=== PATIENT | male | born 1970 | race Caucasian/White ===

== ENCOUNTER 2022-12-30 18:50 | Inpatient (IN) | payer SELFPAY ==
[2022-12-30] MEDS ORDERED: Heparin 10,000 UNITS/ 10 ML VIAL ONE ×2 (19:01→22:01)
[2022-12-30] MEDS ORDERED: Adenosine 6 MG/2 ML VIAL ONE (19:01)
[2022-12-30] MEDS ORDERED: Atropine Sulfate 1 mg/10 ml Syringe ONE (19:01)
[2022-12-30] MEDS ORDERED: Verapamil 5 MG/2 ML VIAL ONE (19:01)
[2022-12-30] MEDS ORDERED: Nitroglycerin 100MG/250ML BOT 0 ML ONE (19:01)
[2022-12-30] MEDS ORDERED: Lidocaine 1% (PF) 30 ML VIAL ONE (19:03)
[2022-12-30] MEDS ORDERED: Fentanyl 100 MCG/2 ML VIAL ONE (19:04)
[2022-12-30 19:10] LABS: #Eosinphils 0.1 thou/uL (0.0-0.7); #Lymphocytes 2.5 thou/uL (1.20-3.40); #Monocytes 0.5 thou/uL (0.11-0.59); #Neutrophils 9.1 thou/uL (1.40-6.50); %Basophils 0.3 % (0.0-1.0); %Eosinophils 0.7 % (0.0-10.0); %Lymphocytes 20.7 % (21.0-51.0); %Monocytes 4.2 % (0.0-10.0); %Neutrophils 74.1 % (42.0-75.0); Hemoglobin 16.8 g/dL (14.0-18.0); Mean Corpuscular HGB CONC 32.3 g/dL (32.0-36.0); Mean Corpuscular Hemoglobin 31.8 pg (27.0-31.0); Mean Corpuscular Volume 98.2 fl (78.0-98.0); Mean Platelet Volume 8.8 fL (7.4-10.4); Platelet Count 307 10x3/uL (130-400); RBC Distribution Width 13.9 % (11.5-14.5); Red Blood Cell (RBC) Count 5.28 mill/uL (4.70-6.10); White Blood Cell (WBC) Count 12.2 10x3/uL (4.8-10.8)
[2022-12-30 19:25] LABS: ALT (SGPT) 107 U/L (8-55); AST (SGOT) 49 U/L (5-34); Albumin 3.8 g/dL (3.5-5.0); Alkaline Phosphatase 109 U/L (40-110); Anion Gap 21 mmol/L (10-20); BUN (Urea Nitrogen) 18 mg/dL (8.4-25.7); Bilirubin, Total 1.9 mg/dL (0.2-1.2); Calc. Creatinine Clearance 0 mL/min (70-130); Calcium 9.3 mg/dL (7.8-10.44); Carbon Dioxide 14 mmol/L (22-29); Chloride 104 mmol/L (98-107); Estimated GFR 63; Glucose 175 mg/dL (70-105); Lipase 9 U/L (8-78); Potassium 3.9 mmol/L (3.5-5.1); Protein, Total 6.8 g/dL (6.0-8.3); Sodium 135 mmol/L (136-145)
[2022-12-30] MEDS ORDERED: Norepinephrine 4 MG/4 ML VIAL ONE (19:28)
[2022-12-30] MEDS ORDERED: Heparin 25,000 units/D5W 500 ML ONE ×3 (19:29→22:04)
[2022-12-30] MEDS ORDERED: Ondansetron PF 4 MG/2 ML Vial ONE (19:44)
[2022-12-30 19:46] LABS: CKMB 3.5 ng/mL (0-6.6)
[2022-12-30] MEDS ORDERED: Aggrastat 12.5 MG/250 ML 250 ML ONE (19:58)
[2022-12-30] MEDS ORDERED: Morphine 4 MG/ML VIAL ONE ×2 (19:58→23:58)
[2022-12-30] MEDS ORDERED: TICAGRELOR 90 MG TABLET ONE (20:58)
[2022-12-30] MEDS ORDERED: DOPamine 400 MG/D5W 250 ML 0 ML ONE (21:09)
[2022-12-30] MEDS ORDERED: Morphine 2 MG/ML VIAL SLOW IVP PRN (23:55)
[2022-12-31] MEDS ORDERED: Lorazepam 2 MG/ML VIAL SLOW IVP PRN ×3 (00:30→11:15)
[2022-12-31] MEDS ORDERED: Morphine 4 MG/ML VIAL SLOW IVP PRN (00:50)
[2022-12-31] MEDS ORDERED: Sodium Bicarbonate 150 MEQ in Dextrose 5% in Water 1,000 ML IV SCH (01:00)
[2022-12-31] MEDS ORDERED: Sodium Bicarb 50 MEQ/50 ML VIAL IVP SCH ×3 (01:00→11:45)
[2022-12-31 01:04] LABS: Base Excess (BEa) -16.8 mEq/L (-2.0 to +3.0); Hemoglobin (Hb) 17.5 g/dL (14.0-18.0); O2 Tension (PaO2), arterial 254.9 mmHg (80.0-100.0); pH, Arterial 7.24 (7.35-7.45)
[2022-12-31 01:05] LABS: Carboxyhemoglobin (COHb) 0.4 gm% (0.0-3.0)
[2022-12-31 01:06] LABS: ALV-art Gradient 435.225 mmHg (0-20); Puncture Site RRA
[2022-12-31 01:14] LABS: Troponin I 398.421 ng/mL (< 0.028)
[2022-12-31 01:37] LABS: CKMB 586.7 ng/mL (0-6.6)
[2022-12-31] MEDS ORDERED: Dextrose 5% in Water 1,000 ML IV PRN (01:48)
[2022-12-31] MEDS ORDERED: HumaLOG 300 UNITS/3 ML VIAL SC PRN ×3 (01:48→19:15)
[2022-12-31] MEDS ORDERED: Dextrose 50% Abboject 50 ML SYRINGE SLOW IVP PRN (01:48)
[2022-12-31] MEDS ORDERED: Electrolyte Replacement Protocol 1 EACH FS ONE (01:48)
[2022-12-31] MEDS ORDERED: Electrolyte Replacement Protocol FS PRN (02:00)
[2022-12-31] MEDS: DOBUTamine 500 mg/250 ml 250 ML IVPB SCH ×6 (02:39→21:48)
[2022-12-31] MEDS: NOREPINEPHRINE 8 MG/250 ML-D5W 250 ML IVPB SCH ×5 (04:26→23:19)
[2022-12-31] MEDS: Morphine 2 MG/ML VIAL SLOW IVP PRN ×2 (05:30→08:35)
[2022-12-31 05:46] VITALS: BMI 26.4
[2022-12-31 06:09] LABS: Acetaminophen Less than 10.0 mcg/mL (10.0-30.0); Alcohol 12 mg/dL (Less than 10); Salicylate 8.1 mg/dL (15.0-30.0)
[2022-12-31 06:35] LABS: Band 5 % (5-11); Hemoglobin 13.6 g/dL (14.0-18.0); Large Platelets SLIGHT; Lymphocytes 3 % (21-51); MDiff Complete? YES; Macrocytosis SLIGHT = 6-15 cells (100X) (0-5/hpf); Mean Corpuscular HGB CONC 31.4 g/dL (32.0-36.0); Mean Corpuscular Hemoglobin 31.6 pg (27.0-31.0); Mean Platelet Volume 9.3 fL (7.4-10.4); Monocytes 7 % (0-10); Neutrophil 85 % (42-75); Nucleated RBC 1 % (0); Platelet Count 202 10x3/uL (130-400); Platelet Morphology Comment Appears Adequate; Polychromasia SLIGHT = 2-3 cells (100X) (0-2/hpf); RBC Distribution Width 14.1 % (11.5-14.5); Red Blood Cell (RBC) Count 4.29 mill/uL (4.70-6.10); White Blood Cell (WBC) Count 24.3 10x3/uL (4.8-10.8)
[2022-12-31 07:30] LABS: Troponin I 556.849 ng/mL (< 0.028)
[2022-12-31 08:21] LABS: Base Excess -16.4 mEq/L (-2.0 to +3.0); Calcium, Ionized (venous) 1.02 mmol/L (1.16-1.32); Chloride (VBG) 100 mmol/L (98-106); Hemoglobin (Hb) 13.9 g/dL (13.1-17.2); Potassium (VBG) 4.88 mmol/L (3.70-5.30); Sodium 136.3 mmol/L (133-146)
[2022-12-31 08:49] LABS: ALT (SGPT) 3732 U/L (8-55)
[2022-12-31] MEDS ORDERED: Calcium Chloride 1 GM/10 ML Abboject SYRINGE ONE (08:56)
[2022-12-31] MEDS ORDERED: CALCIUM GLUC 1 GM/NS 50 ML 1 GM in Premix Bag 1 BAG IVPB SCH (09:15)
[2022-12-31] MEDS ORDERED: Sodium Bicarb 50 MEQ/50 ML VIAL ONE (09:21)
[2022-12-31] MEDS ORDERED: Sodium Bicarb 50 MEQ/50 ML Abboject 8.4% SYRINGE ONE (09:25)
[2022-12-31] MEDS ORDERED: Heparin 25,000 units/D5W 500 ML IV SCH ×4 (09:30→17:00)
[2022-12-31] MEDS: Aspirin Chewable 81 MG TAB PO SCH ×2 (09:40→10:31)
[2022-12-31] MEDS: TICAGRELOR 90 MG TABLET PO SCH ×3 (09:45→22:36)
[2022-12-31] MEDS ORDERED: Fentanyl 100 MCG/2 ML VIAL SLOW IVP SCH (09:45)
[2022-12-31] MEDS ORDERED: PROPOFOL 200 MG/20 ML VIAL ONE (09:55)
[2022-12-31 10:01] LABS: Albumin 2.5 g/dL (3.5-5.0)
[2022-12-31 10:02] LABS: Chloride 102 mmol/L (98-107); Potassium 4.6 mmol/L (3.5-5.1); Sodium 138 mmol/L (136-145)
[2022-12-31 10:03] LABS: Calcium 8.6 mg/dL (7.8-10.44); Glucose 164 mg/dL (70-105)
[2022-12-31 10:05] LABS: Anion Gap 30 mmol/L (10-20); Carbon Dioxide 11 mmol/L (22-29)
[2022-12-31 10:06] LABS: Alkaline Phosphatase 86 U/L (40-110)
[2022-12-31 10:07] LABS: BUN (Urea Nitrogen) 29 mg/dL (8.4-25.7)
[2022-12-31] MEDS ORDERED: Fentanyl CADD 100 ML ONE (10:07)
[2022-12-31] MEDS ORDERED: PROPOFOL 0 ML ONE (10:10)
[2022-12-31 10:13] LABS: SARS-CoV-2 NAA Rapid Test Not Detected (NotDetected)
[2022-12-31 10:13] LABS: Bilirubin, Total 4.9 mg/dL (0.2-1.2); Calc. Creatinine Clearance 75 mL/min (70-130); Estimated GFR 54
[2022-12-31 10:14] LABS: AST (SGOT) 2062 U/L (5-34)
[2022-12-31 10:15] LABS: Globulin 3.1 g/dL (2.4-3.5); Protein, Total 5.6 g/dL (6.0-8.3)
[2022-12-31] MEDS: Pantoprazole 40 MG VIAL IVP SCH (10:31)
[2022-12-31 10:47] LABS: Base Excess (BEa) -12.3 mEq/L (-2.0 to +3.0); CO2 Tension 29.2 mmHg (35.0-45.0); Calcium, Ionized (arterial) 1.07 mmol/L (1.12-1.30); Carboxyhemoglobin (COHb) 0.1 gm% (0.0-3.0); Hemoglobin (Hb) 12.8 g/dL (14.0-18.0); O2 Tension (PaO2), arterial 172.9 mmHg (80.0-100.0); Potassium - ABG Lab 4.39 mmol/L (3.70-5.30); pH, Arterial 7.27 (7.35-7.45)
[2022-12-31] MEDS ORDERED: Propofol 1,000 MG/100 ML VIAL IV ONE (10:49)
[2022-12-31] MEDS: Heparin 10,000 UNITS/ 10 ML VIAL SLOW IVP SCH ×5 (10:57→22:11)
[2022-12-31 11:00] LABS: Actual Bicarbonate (HCO3a) 13.1 mEq/L (22-28); Puncture Site Arterial Line
[2022-12-31] MEDS ORDERED: Vecuronium 10 MG VIAL IV SCH (11:00)
[2022-12-31] MEDS ORDERED: DISCONTINUE PREVIOUS NARCOTIC PAIN MEDICATIONS AND BENZODIAZEPINES FS SCH (11:15)
[2022-12-31] MEDS ORDERED: Lorazepam 2 MG/ML VIAL SLOW IVP SCH (11:15)
[2022-12-31] MEDS ORDERED: Propofol 1,000 MG/100 ML VIAL IV PRN (11:15)
[2022-12-31] MEDS ORDERED: Rocuronium Bromide 10 MG/ML (10ML VIAL) IVPB SCH (11:15)
[2022-12-31] MEDS ORDERED: Fentanyl BOLUS 250 ML IVPB PRN (11:15)
[2022-12-31] MEDS ORDERED: Ondansetron PF 4 MG/2 ML Vial IVP SCH (11:15)
[2022-12-31] MEDS ORDERED: Fentanyl CADD 100 ML IV SCH (11:15)
[2022-12-31] MEDS ORDERED: Morphine 2 MG/ML VIAL SLOW IVP PRN (11:15)
[2022-12-31] MEDS ORDERED: Propofol BOLUS 1,000 MG/100 ML VIAL IV PRN (11:15)
[2022-12-31] MEDS ORDERED: NOREPINEPHRINE 8 MG/250 ML-D5W 250 ML ONE (12:23)
[2022-12-31] MEDS: EPINEPHrine 4 MG in Dextrose 5% in Water 250 ML IV SCH ×4 (14:21→23:04)
[2022-12-31 15:25] LABS: Chloride 100 mmol/L (98-107); Sodium 137 mmol/L (136-145)
[2022-12-31 15:26] LABS: Glucose 299 mg/dL (70-105)
[2022-12-31 15:28] LABS: Anion Gap 27 mmol/L (10-20); Carbon Dioxide 14 mmol/L (22-29)
[2022-12-31 15:29] LABS: Calc. Creatinine Clearance 37 mL/min (70-130); Estimated GFR 23
[2022-12-31 15:30] LABS: BUN (Urea Nitrogen) 33 mg/dL (8.4-25.7)
[2022-12-31] MEDS: Sodium Bicarbonate 150 MEQ in Dextrose 5% in Water 1,000 ML IV SCH (15:36)
[2022-12-31 15:37] LABS: Calcium 7.3 mg/dL (7.8-10.44)
[2022-12-31] MEDS ORDERED: Rosuvastatin 20 MG TAB PO SCH (21:00)
[2022-12-31 21:23] LABS: Actual Bicarbonate (HCO3a) 23.4 mEq/L (22-28); Base Excess (BEa) -0.9 mEq/L (-2.0 to +3.0); CO2 Tension 37.6 mmHg (35.0-45.0); Calcium, Ionized (arterial) 0.87 mmol/L (1.12-1.30); Carboxyhemoglobin (COHb) 0.1 gm% (0.0-3.0); O2 Tension (PaO2), arterial 203.2 mmHg (80.0-100.0); Potassium - ABG Lab 3.36 mmol/L (3.70-5.30); pH, Arterial 7.41 (7.35-7.45)
[2022-12-31 21:24] LABS: Puncture Site Arterial Line
[2022-12-31 21:49] LABS: Lactic Acid 3.6 mmol/L (0.5-2.2)
[2022-12-31 21:54] LABS: Albumin 2.5 g/dL (3.5-5.0); Alkaline Phosphatase 94 U/L (40-110); Anion Gap 16 mmol/L (10-20); BUN (Urea Nitrogen) 39 mg/dL (8.4-25.7); Bilirubin, Total 5.8 mg/dL (0.2-1.2); Calc. Creatinine Clearance 32 mL/min (70-130); Carbon Dioxide 23 mmol/L (22-29); Chloride 98 mmol/L (98-107); Estimated GFR 19; Glucose 155 mg/dL (70-105); Magnesium 1.9 mg/dL (1.6-2.6); Potassium 3.4 mmol/L (3.5-5.1); Protein, Total 4.5 g/dL (6.0-8.3); Sodium 134 mmol/L (136-145)
[2022-12-31 21:59] LABS: AST (SGOT) Greater than 3500 U/L (5-34)
[2022-12-31 22:01] LABS: Band 30 % (5-11); Calcium 6.5 mg/dL (7.8-10.44); Hemoglobin 11.1 g/dL (14.0-18.0); Lymphocytes 7 % (21-51); MDiff Complete? YES; Mean Corpuscular HGB CONC 32.4 g/dL (32.0-36.0); Mean Corpuscular Hemoglobin 31.3 pg (27.0-31.0); Mean Corpuscular Volume 96.6 fl (78.0-98.0); Mean Platelet Volume 9.5 fL (7.4-10.4); Monocytes 1 % (0-10); Neutrophil 59 % (42-75); Nucleated RBC 4 % (0); Ovalocytes SLIGHT = 2-5 cells (100X) (0-1/hpf); Platelet Count 144 10x3/uL (130-400); Platelet Morphology Comment Appears Adequate; Polychromasia MODERATE = 3-4 cells (100X) (0-2/hpf); RBC Distribution Width 13.8 % (11.5-14.5); Reactive Lymphocytes 3 % (0-10); Red Blood Cell (RBC) Count 3.54 mill/uL (4.70-6.10); Target Cells SLIGHT = 2-5 cells (100X) (0-1/hpf)
[2022-12-31 22:07] LABS: ALT (SGPT) 5506 U/L (8-55)
[2022-12-31 23:03] LABS: Fibrinogen 184 mg/dL (253-463)
[2022-12-31 23:04] LABS: INR-International Normal Ratio 3.7; PTT 50.8 sec (22.9-36.1); Prothrombin Time 38.6 sec (12.0-14.7)
[2022-12-31 23:12] LABS: D-Dimer Test 14.87 *mcg/mL (0.27-0.43)
[2022-12-31 23:13] LABS: Platelet Count 144 10x3/uL (130-400)
[2023-01-01] MEDS ORDERED: CALCIUM GLUC 1 GM/NS 50 ML 1 GM in Premix Bag 1 BAG IVPB SCH (00:15)
[2023-01-01 00:23] VITALS: TEMP 98.9
[2023-01-01] MEDS: EPINEPHrine 4 MG in Dextrose 5% in Water 250 ML IV SCH ×4 (01:10→08:54)
[2023-01-01] MEDS: DOBUTamine 500 mg/250 ml 250 ML IVPB SCH ×2 (01:14→05:35)
[2023-01-01] MEDS: NOREPINEPHRINE 8 MG/250 ML-D5W 250 ML IVPB SCH ×2 (03:04→06:16)
[2023-01-01] MEDS ORDERED: Albumin 25% 25 GM/100 ML BOT IVPB SCH (04:15)
[2023-01-01 04:21] LABS: Anion Gap 18 mmol/L (10-20); BUN (Urea Nitrogen) 43 mg/dL (8.4-25.7); Calc. Creatinine Clearance 28 mL/min (70-130); Carbon Dioxide 21 mmol/L (22-29); Chloride 94 mmol/L (98-107); Estimated GFR 16; Glucose 176 mg/dL (70-105); Potassium 3.7 mmol/L (3.5-5.1); Sodium 129 mmol/L (136-145)
[2023-01-01 04:24] LABS: Band 39 % (5-11); Hemoglobin 10.9 g/dL (14.0-18.0); Lymphocytes 4 % (21-51); MDiff Complete? YES; Mean Corpuscular HGB CONC 32.6 g/dL (32.0-36.0); Mean Corpuscular Hemoglobin 31.3 pg (27.0-31.0); Mean Corpuscular Volume 96.1 fl (78.0-98.0); Mean Platelet Volume 9.7 fL (7.4-10.4); Monocytes 2 % (0-10); Neutrophil 54 % (42-75); Nucleated RBC 3 % (0); Platelet Count 132 10x3/uL (130-400); Platelet Morphology Comment Appears Adequate; Polychromasia MODERATE = 3-4 cells (100X) (0-2/hpf); RBC Distribution Width 13.7 % (11.5-14.5); Reactive Lymphocytes 1 % (0-10); Red Blood Cell (RBC) Count 3.49 mill/uL (4.70-6.10); White Blood Cell (WBC) Count 13.1 10x3/uL (4.8-10.8)
[2023-01-01] MEDS: Sodium Bicarbonate 150 MEQ in Dextrose 5% in Water 1,000 ML IV SCH (05:54)
[2023-01-01] MEDS ORDERED: EPINEPHrine 1 MG/10 ML Abboject SYRINGE IVP SCH (06:20)
[2023-01-01] MEDS ORDERED: Sodium Chloride 0.9% 500 ML IV SCH (06:45)
[2023-01-01 07:53] VITALS: BP 76/48
[2023-01-01] MEDS ORDERED: cefTRIAXone\\ROCEPHIN 2 GM in Sodium Chloride 0.9% 100 ML IVPB SCH (08:00)
[2023-01-01 08:05] LABS: Actual Bicarbonate (HCO3a) 18.5 mEq/L (22-28); CO2 Tension 41.8 mmHg (35.0-45.0); Calcium, Ionized (arterial) 0.87 mmol/L (1.12-1.30); Carboxyhemoglobin (COHb) 0.6 gm% (0.0-3.0); Hemoglobin (Hb) 11.9 g/dL (14.0-18.0); O2 Tension (PaO2), arterial 111.5 mmHg (80.0-100.0); Potassium - ABG Lab 4.13 mmol/L (3.70-5.30); pH, Arterial 7.27 (7.35-7.45)
[2023-01-01 08:06] LABS: Puncture Site Arterial Line
[2023-01-01] MEDS ORDERED: Aspirin 300 MG Suppository PR SCH (09:00)
[2023-01-01] MEDS ORDERED: Iopamidol 370 76% 100 ML VIAL ONE (09:23)
[2023-01-01] MEDS: Pantoprazole 40 MG VIAL IVP SCH (10:00)
[2023-01-01] MEDS: TICAGRELOR 90 MG TABLET PO SCH (10:15)
[2023-01-02 16:18] LABS: Actual Bicarbonate (HCO3v) 12 mEq/L (22-28); pH (venous) 7.14 (7.32-7.43)
[2023-01-02 16:19] LABS: CO2 Tension 18.3 mmHg (35.0-45.0)
[2023-01-02 16:20] LABS: Actual Bicarbonate (HCO3a) 7.5 mEq/L (22-28); Potassium - ABG Lab 6.77 mmol/L (3.70-5.30)
== END 2023-01-01 10:01 | disposition expired | DRG 215 ==
LOC: ERS 18:50 → SDC/OP 19:14 → CCU 22:58
PROVIDERS: ADMIT Internal Medicine; ATTEND Internal Medicine Cardiovascular Disease
PROC: 02HA3RZ Insertion of Short-term External Heart Assist System into Heart, Percutaneous Approach (ICD-10-PCS; 2022-12-30)
PROC: 5A0221D Assistance with Cardiac Output using Impeller Pump, Continuous (ICD-10-PCS; 2022-12-30)
PROC: 02703DZ Dilation of Coronary Artery, One Artery with Intraluminal Device, Percutaneous Approach (ICD-10-PCS; 2022-12-30)
PROC: 02C03ZZ Extirpation of Matter from Coronary Artery, One Artery, Percutaneous Approach (ICD-10-PCS; 2022-12-30)
PROC: 4A023N7 Measurement of Cardiac Sampling and Pressure, Left Heart, Percutaneous Approach (ICD-10-PCS; 2022-12-30)
PROC: B2111ZZ Fluoroscopy of Multiple Coronary Arteries using Low Osmolar Contrast (ICD-10-PCS; 2022-12-30)
PROC: B2151ZZ Fluoroscopy of Left Heart using Low Osmolar Contrast (ICD-10-PCS; 2022-12-30)
PROC: 3E033PZ Introduction of Platelet Inhibitor into Peripheral Vein, Percutaneous Approach (ICD-10-PCS; 2022-12-30)
PROC: 5A1935Z Respiratory Ventilation, Less than 24 Consecutive Hours (ICD-10-PCS; principal; 2022-12-31)
PROC: 3E033XZ Introduction of Vasopressor into Peripheral Vein, Percutaneous Approach (ICD-10-PCS; 2022-12-31)
PROC: 5A12012 Performance of Cardiac Output, Single, Manual (ICD-10-PCS; 2022-12-31)
PROC: 02H633Z Insertion of Infusion Device into Right Atrium, Percutaneous Approach (ICD-10-PCS; 2022-12-31)
PROC: B548ZZA Ultrasonography of Superior Vena Cava, Guidance (ICD-10-PCS; 2022-12-31)
PROC: 03HY32Z Insertion of Monitoring Device into Upper Artery, Percutaneous Approach (ICD-10-PCS; 2022-12-31)
PROC: 3E043XZ Introduction of Vasopressor into Central Vein, Percutaneous Approach (ICD-10-PCS; 2022-12-31)
PROC: 0BH18EZ Insertion of Endotracheal Airway into Trachea, Via Natural or Artificial Opening Endoscopic (ICD-10-PCS; 2022-12-31)
PROC: 4A133R1 Monitoring of Arterial Saturation, Peripheral, Percutaneous Approach (ICD-10-PCS; 2022-12-31)
DX: I21.29 ST elevation (STEMI) myocardial infarction involving other sites (principal); G93.41 Metabolic encephalopathy; N17.0 Acute kidney failure with tubular necrosis; J96.01 Acute respiratory failure with hypoxia; K72.00 Acute and subacute hepatic failure without coma; E87.20 Acidosis, unspecified; I42.0 Dilated cardiomyopathy; I13.0 Hypertensive heart and chronic kidney disease with heart failure and stage 1 through stage 4 chronic kidney disease, or unspecified chronic kidney disease; E87.1 Hypo-osmolality and hyponatremia; Z66 Do not resuscitate; Z20.822 Contact with and (suspected) exposure to COVID-19; R57.0 Cardiogenic shock; E87.5 Hyperkalemia; I25.10 Atherosclerotic heart disease of native coronary artery without angina pectoris; I48.91 Unspecified atrial fibrillation; I25.5 Ischemic cardiomyopathy; F12.10 Cannabis abuse, uncomplicated; N18.30 Chronic kidney disease, stage 3 unspecified; I50.9 Heart failure, unspecified; R94.5 Abnormal results of liver function studies; D72.829 Elevated white blood cell count, unspecified; E83.51 Hypocalcemia; R00.1 Bradycardia, unspecified; Z78.1 Physical restraint status; Z95.5 Presence of coronary angioplasty implant and graft; Z88.0 Allergy status to penicillin; Z95.1 Presence of aortocoronary bypass graft
CPT/HCPCS: 33990; 36415; 36416; 36600; 71045; 74018; 80048; 80053; 80307; 82553; 82805; 83605; 83690; 83735; 84484; 85025; 85049; 85300; 85347; 85362; 85379; 85384; 85610; 85730; 92941; 93005; 93010; 93306; 93458; 94002; 94003; 94760; 96374; 96375; C1757; C1769; C1876; C1887; C1894; C9113; J0153; J0171; J0461; J0610; J0611; J1250; J1265; J1644; J2001; J2060; J2270; J2272; J2405; J2704; J3010; J3246; J3490; J7030; J7070; P9047; Q9967; U0002